=== PATIENT | female | born 1970 | race Caucasian/White ===

== ENCOUNTER → 2016-11-04 | Emergency (ER) | payer OTHER ==
[~2016-11-04] VITALS: Ht 160 cm; Wt 70.3 kg
[~2016-11-04] MED LIST: BENTYL10 MG PO; BENTYL20 MG PO; CIPRO500 MG PO; FLOMAX0.4 MG PO; NAPROXEN500 MG PO; ZOFRAN ODT4 MG PO; ZOFRAN4 MG PO
[2016-11-04 15:30] LABS: EOSINOPHIL (%) 0.1 % (0-5); HEMATOCRIT 39.8 % (36.0-46.0); IMMATURE GRANULOCYTE (%) 0.4 % (0.0-0.7); IMMATURE GRANULOCYTE COUNT 0.1 K/uL; INSTRUMENT ABS NEUTROPHIL CT 8.9 K/uL; LYMPHOCYTE COUNT 1.8 K/uL (1.0-2.8); MCH 33.7 PG (29.0-34.0); MCHC 34.4 G/DL (30.0-36.0); MCV 97.8 FL (83-99); MEAN PLAT.VOLUME 9.5 uM^3 (9.5-12.4); MONOCYTE (%) 4.4 % (3-12); MONOCYTE COUNT 0.5 K/uL (0-0.8); NEUTROPHIL (%) 78.6 % (45-76); NEUTROPHIL COUNT 8.9 K/uL (1.8-6.4); PLATELET COUNT 393 K/uL (156-360); RBC DIS.WIDTH-CV 14.2 % (11.8-14.6); RBC DIS.WIDTH-SD 51.1 % (39-53); RED BLOOD COUNT 4.07 M/uL (3.80-5.20); WHITE BLOOD COUNT 11.3 K/uL (4.1-10.2)
[2016-11-04 15:32] LABS: CHLORIDE 103 mEq/L (99-109); POTASSIUM 3.7 mEq/L (3.7-5.4); SODIUM 140 mEq/L (136-147)
[2016-11-04 15:34] LABS: GLUCOSE 124 mg/dL (70-99)
[2016-11-04 15:35] LABS: ANION GAP 16 MEQ/L (2-14)
[2016-11-04 15:36] LABS: TOTAL BILIRUBIN 0.4 mg/dL (0.0-1.0)
[2016-11-04 15:38] LABS: ALKALINE PHOSPHATASE 95 IU/L (3-129); GFR ESTIMATE (CALCULATED) > 59 mL/min/
[2016-11-04 15:39] LABS: UREA NITROGEN (BUN) 19 mg/dL (9-23)
[2016-11-04 15:41] LABS: LIPASE 20 U/L (1.0-51.0)
[2016-11-04 16:15] LABS: ADD MIUA? YES; BILIRUBIN NEGATIVE; BLOOD NEGATIVE; COLOR YELLOW ((YELLOW)); GLUCOSE (STRIP) NEGATIVE; KETONES 80; LEUKOCYTES TRACE; NITRITE NEGATIVE; PROTEIN (STRIP) >=500; SPECIFIC GRAVITY 1.033 (1.000-1.030); UROBILINOGEN 0.2 MG/DL (0.2-1.0)
[2016-11-04 16:19] LABS: BACTERIA RARE /HPF; EPITHELIAL CELLS 1+ /HPF; HYALINE CASTS 0-5 /LPF; MUCUS 1+ /LPF; RED BLOOD CELLS 0-5 /HPF (0-5); UCUL ADDED? NO
[2016-11-04 18:16] VITALS: BP 128/96
== END | disposition home or self-care (01) ==
LOC: EME 14:50
PROVIDERS: Emergency Medicine
DX: R10.12 Left upper quadrant pain (principal); N39.0 Urinary tract infection, site not specified; Z87.891 Personal history of nicotine dependence; R11.2 Nausea with vomiting, unspecified
CPT/HCPCS: 74177; 80053; 81003; 83690; 85025; 93005; 99281; 99285; J2270; J2405; J7030

== ENCOUNTER 2016-11-06 05:11 | Emergency (ER) | payer OTHER ==
[~2016-11-06] VITALS: Ht 160 cm; Wt 72.0 kg
[~2016-11-06 05:11] MED LIST changes: -BENTYL10 MG PO; -ZOFRAN ODT4 MG PO
[2016-11-06 05:54] LABS: EOSINOPHIL (%) 0.1 % (0-5); HEMATOCRIT 40.3 % (36.0-46.0); IMMATURE GRANULOCYTE (%) 0.6 % (0.0-0.7); IMMATURE GRANULOCYTE COUNT 0.1 K/uL; INSTRUMENT ABS NEUTROPHIL CT 5.6 K/uL; LYMPHOCYTE COUNT 2.2 K/uL (1.0-2.8); MCH 33.4 PG (29.0-34.0); MCHC 34.2 G/DL (30.0-36.0); MCV 97.6 FL (83-99); MEAN PLAT.VOLUME 9.5 uM^3 (9.5-12.4); MONOCYTE (%) 8.8 % (3-12); MONOCYTE COUNT 0.8 K/uL (0-0.8); NEUTROPHIL (%) 64.9 % (45-76); NEUTROPHIL COUNT 5.6 K/uL (1.8-6.4); PLATELET COUNT 395 K/uL (156-360); RBC DIS.WIDTH-CV 14.1 % (11.8-14.6); RED BLOOD COUNT 4.13 M/uL (3.80-5.20); WHITE BLOOD COUNT 8.6 K/uL (4.1-10.2)
[2016-11-06 06:11] LABS: CHLORIDE 96 mEq/L (99-109); POTASSIUM 3.9 mEq/L (3.7-5.4); SODIUM 136 mEq/L (136-147)
[2016-11-06 06:14] LABS: GLUCOSE 113 mg/dL (70-99)
[2016-11-06 06:15] LABS: ANION GAP 18 MEQ/L (2-14)
[2016-11-06 06:16] LABS: TOTAL BILIRUBIN 0.4 mg/dL (0.0-1.0)
[2016-11-06 06:17] LABS: ALKALINE PHOSPHATASE 83 IU/L (3-129); GFR ESTIMATE (CALCULATED) > 59 mL/min/
[2016-11-06 06:18] LABS: UREA NITROGEN (BUN) 16 mg/dL (9-23)
[2016-11-06 06:21] LABS: LIPASE 12 U/L (1.0-51.0)
[2016-11-06 06:31] LABS: QUANTITATIVE HCG < 4.0 MIU/ML
[2016-11-06] MEDS ORDERED: ZOFRAN ODT4 MG PO (09:03)
[2016-11-06 09:47] VITALS: BP 136/81
[2016-11-07] MEDS ORDERED: BENTYL10 MG PO (09:16)
[2016-11-07] MEDS ORDERED: ZOFRAN ODT4 MG PO (09:16)
[2016-11-07] MEDS ORDERED: CIPRO500 MG PO (09:16)
== END 2016-11-06 09:47 | disposition home or self-care (01) ==
LOC: EME → EDBD 05:11 → EME 09:47
PROVIDERS: Emergency Medicine
DX: R10.12 Left upper quadrant pain (principal); R11.2 Nausea with vomiting, unspecified; R51 Headache; Z87.891 Personal history of nicotine dependence
CPT/HCPCS: 80053; 81003; 83690; 84702; 85025; 99281; 99284; J1630; J2270; J2405; J2765; J3010; J7030

== ENCOUNTER → 2016-11-07 | Emergency (ER) | payer OTHER ==
[~2016-11-07] VITALS: Ht 165.1 cm; Wt 70.8 kg
[~2016-11-07] MED LIST changes: +BENTYL10 MG PO; +ZOFRAN ODT4 MG PO
[2016-11-07 10:05] LABS: HEMATOCRIT 34.7 % (36.0-46.0); MCH 33.5 PG (29.0-34.0); MCV 98.6 FL (83-99); MEAN PLAT.VOLUME 9.9 uM^3 (9.5-12.4); PLATELET COUNT 297 K/uL (156-360); RBC DIS.WIDTH-SD 50.6 % (39-53); RED BLOOD COUNT 3.52 M/uL (3.80-5.20); WHITE BLOOD COUNT 6.9 K/uL (4.1-10.2)
[2016-11-07 10:08] LABS: CHLORIDE 103 mEq/L (99-109); POTASSIUM 3.5 mEq/L (3.7-5.4); SODIUM 136 mEq/L (136-147)
[2016-11-07 10:10] LABS: GLUCOSE 108 mg/dL (70-99)
[2016-11-07 10:11] LABS: ANION GAP 12 MEQ/L (2-14)
[2016-11-07 10:13] LABS: TOTAL BILIRUBIN 0.3 mg/dL (0.0-1.0)
[2016-11-07 10:14] LABS: ALKALINE PHOSPHATASE 71 IU/L (3-129); GFR ESTIMATE (CALCULATED) > 59 mL/min/
[2016-11-07 10:15] LABS: UREA NITROGEN (BUN) 13 mg/dL (9-23)
[2016-11-07 10:17] LABS: LIPASE 15 U/L (1.0-51.0)
[2016-11-07 10:51] VITALS: BP 123/72
== END | disposition home or self-care (01) ==
LOC: EME 08:30
PROVIDERS: Nurse Practitioner Family
DX: N39.0 Urinary tract infection, site not specified (principal); Z87.891 Personal history of nicotine dependence; R06.02 Shortness of breath; R10.11 Right upper quadrant pain; R11.2 Nausea with vomiting, unspecified
CPT/HCPCS: 80053; 83690; 85027; 99281; 99285; J2405; J3010; J7030